=== PATIENT | female | born 1985 | race Caucasian/White ===

== ENCOUNTER 2018-02-09 16:00 | Emergency (ER) | payer BC ==
[2018-02-09 16:22] VITALS: BP 128/84
--- NOTE | 2018-02-09 16:26 | UC ---
Abdominal Pain Female HPI - HPI Summary HPI Summary: STARTED W/ A FEW DAYS OF RLQ PAIN AND R GROIN PAIN. she is active in the gym and feels perhaps she pulled a muscle. denies n/v, diarrhea, fever. has not tried anything. - History of Current Complaint Stated Complaint: ABDOMINAL PAIN Time Seen by Provider: 02/09/18 16:14 Hx Obtained From: Patient ?: No Radiates: Yes Radiates to: RLQ Character: Aching Aggravating Factor(s): Movement Alleviating Factor(s): Position Associated Signs and Symptoms: Positive: Negative Allergies/Adverse Reactions: Allergies Allergy/AdvReac Type Severity Reaction Status Date / Time Penicillins Allergy Severe Hives Verified 02/09/18 16:22 Home Medications: Home Medications Amphetamine MIXED SALT TAB* [Adderall TAB*] 10 mg PO BID 02/09/18 [History Confirmed 02/09/18] PMH/Surg Hx/FS Hx/Imm Hx Previously Healthy: Yes Review of Systems All Other Systems Reviewed And Are Negative: Yes Constitutional: Positive: Negative Respiratory: Positive: Negative Cardiovascular: Positive: Negative Gastrointestinal: Positive: Abdominal Pain - RLQ/R GROIN Genitourinary: Positive: Negative. Negative: Dysuria, Vaginal/Penile Discharge Physical Exam Triage Information Reviewed: Yes Appearance: Well-Appearing, Other: - sitting uncomfortably Vital Signs Reviewed: Yes Respiratory Exam: Normal Cardiovascular Exam: Normal Abdomen Description: Positive: Soft, Guarding - RLQ, tenderness at R groin ? hernia, Hernia @ - ? R groin. Negative: CVA Tenderness (R), CVA Tenderness (L) , Distended Neurological: Positive: Alert Skin Exam: Other - C section scar noted, nontender Abd Pain Female Course/Dx - Differential Dx/Diagnosis Differential Diagnosis: Appendicitis, Diverticulitis, Ovarian Cyst, Renal Colic , Urinary Tract Infection Provider Diagnoses: RLQ TENDERNESS W/? hernia at R groin. cannot r/o appendicitis Discharge - Sign-Out/Discharge Documenting (check all that apply): Patient Departure All imaging exams completed and their final reports reviewed: No Studies - Discharge Plan Condition: Good Disposition: HOME-RECOMMEND TO ED Patient Education Materials: Inguinal Hernia (ED), Acute Abdominal Pain (ED) Referrals: Froilan Light DO [Primary Care Provider] - Additional Instructions: Because I cannot rule out appendicitis it is my recommendation that you go to ER and get CT. On exam I also thought I felt a hernia but also unclear. Offer ambulance. - Billing Disposition and Condition Condition: GOOD Disposition: Home-Recommend to ED
== END 2018-02-09 17:10 | disposition home health service (06) ==
LOC: UCEAST 16:00
DX: R10.31 Right lower quadrant pain (principal)
CPT/HCPCS: 81003; 84702; 99202; G0463

== ENCOUNTER 2018-02-09 17:52 | Emergency (ER) | payer BC ==
[2018-02-09] MEDS ORDERED: NS 0.9% 1000 ML* 1,000 ML IV ONE (18:08)
[2018-02-09] MEDS ORDERED: Ketorolac INJ* 30 MG/ML 1 ML VIAL IV PUSH ONE (18:08)
--- NOTE | 2018-02-09 18:12 | ED ---
GI/ HPI - HPI Summary HPI Summary: 32 year old female presents with right lower quadrant pain for the past day. She states that she is having pain over the past couple weeks. She said that today the pain has been getting worse for the past 24 hours. She denies any urinary symptoms. no nausea or vomiting. No decreased appetite. no abnormal vaginal discharge. No diarrhea constipation. Has history of ovarian cyst that required surgery. Has also had a section. Has no medical conditions. Hasn't tried anything for pain. no medical conditions. - History of Current Complaint Chief Complaint: EDAbdPain Time Seen by Provider: 02/09/18 18:00 Stated Complaint: ABD PAIN/SWELLING Hx Last Menstrual Period: 01/25/18 Pain Intensity: 5 - Allergy/Home Medications Allergies/Adverse Reactions: Allergies Allergy/AdvReac Type Severity Reaction Status Date / Time Penicillins Allergy Severe Hives Verified 02/09/18 16:22 PMH/Surg Hx/FS Hx/Imm Hx Endocrine/Hematology History: Denies: Hx Diabetes, Hx Thyroid Disease Cardiovascular History: Denies: Hx Hypertension Respiratory History: Denies: Hx Asthma, Hx Chronic Obstructive Pulmonary Disease (COPD) GI History: Denies: Hx Ulcer - Surgical History Surgery Procedure, Year, and Place: Infectious Disease History: No Infectious Disease History: Denies: Hx Hepatitis, Hx Human Immunodeficiency Virus (HIV), Traveled Outside the [place] in Last 30 Days - Family History Known Family History: Negative: Diabetes - Social History Alcohol Use: Occasionally Substance Use Type: Reports: None Smoking Status (MU): Light Every Day Tobacco Smoker Review of Systems Negative: Fever Negative: Chest Pain Negative: Shortness Of Breath Positive: Abdominal Pain. Negative: Vomiting, Diarrhea, Nausea Negative: dysuria All Other Systems Reviewed And Are Negative: Yes Physical Exam Triage Information Reviewed: Yes Vital Signs On Initial Exam: Initial Vitals Temp Pulse Resp BP Pulse Ox 98.0 F 82 18 124/81 100 02/09/18 17:54 02/09/18 17:54 02/09/18 17:54 02/09/18 17:54 02/09/18 17:54 Vital Signs Reviewed: Yes Appearance: Positive: Well-Appearing Skin: Positive: Warm, Dry Head/Face: Positive: Normal Head/Face Inspection Eyes: Positive: Normal, Conjunctiva Clear ENT: Positive: Pharynx normal Respiratory/Lung Sounds: Positive: Clear to Auscultation, Breath Sounds Present Cardiovascular: Positive: Normal, RRR Abdomen Description: Positive: Soft, Other: - tenderness RLQ, neg rovsings Bowel Sounds: Positive: Present Musculoskeletal: Positive: Normal Neurological: Positive: Normal Psychiatric: Positive: Normal Diagnostics - Vital Signs Vital Signs Temp Pulse Resp BP Pulse Ox 02/09/18 17:54 98.0 F 82 18 124/81 100 - Laboratory Result Diagrams: 02/09/18 18:20 02/09/18 18:20 Lab Statement: Any lab studies that have been ordered have been reviewed, and results considered in the medical decision making process. - CT abd CT Interpretation Completed By: Radiologist Summary of CT Findings: IMPRESSION: 1. No acute findings. No evidence of appendicitis. 2. Large amount of stool in the colon. Correlate clinically for constipation. - Ultrasound No standard instances Ultrasound Interpretation Completed By: Radiologist Summary of Ultrasound Findings: IMPRESSION: 1. No acute findings. 2. Small left ovarian cyst. A complex hypoechoic area is also noted on the left. ovary, possibly an involuting or hemorrhagic cyst. Consider followup ultrasound. to reassess. 3. Prominent endometrial stripe. Correlate with patient's cycle. Re-Evaluation - Re-Evaluation First Eval Re-Evaluation Time: 19:25 Change: Improved Comment: feeling better after toradol GIGU Course/Dx - Course Course Of Treatment: 32 year old female presents with right lower quadrant pain for the past day. She states that she is having pain over the past couple weeks. She said that today the pain has been getting worse for the past 24 hours. She denies any urinary symptoms. no nausea or vomiting. No decreased appetite. no abnormal vaginal discharge. No diarrhea constipation. Has history of ovarian cyst that required surgery. Has also had a section. Has no medical conditions. Hasn't tried anything for pain. on exam tenderness RLQ. neg rovsings. wbc normal. crp normal. transvaginal u/s shows left ovarian cyst. urine no infection. CT normal just stool. discussed results with patient and patient states does not feel constipated. discussed should take tyenlol or ibuprofen for pain and follow up with primary. could be hernia causing pain although no hernia felt at this time. patient understand and agrees with plan. - Diagnoses Differential Diagnoses - Female: Appendicitis, Ovarian Cyst, Urinary Tract Infection Provider Diagnoses: Abdominal pain Discharge - Sign-Out/Discharge Documenting (check all that apply): Patient Departure - Discharge Plan Condition: Good Disposition: HOME Patient Education Materials: Acute Abdominal Pain (ED) Referrals: Froilan Light DO [Primary Care Provider] - Additional Instructions: Your pain is not caused by any surgical emergency Drink fluids as tolerated Take ibuprofen or Tylenol for pain as needed every 6 hours Follow up with primary within 5 days Return to ED if develop any new or worsening symptoms - Billing Disposition and Condition Condition: GOOD Disposition: Home
[2018-02-09 18:39] LABS: ABS Basophils 0 10^3/ul (0-0.2); ABS Eosinophils 0.2 10^3/ul (0-0.6); ABS Lymphocytes 2.6 10^3/ul (1.0-4.8); ABS Monocytes 0.4 10^3/ul (0-0.8); ABS Neutrophils 3.8 10^3/ul (1.5-7.7); ABS Nucleated RBC 0 10^3/ul; Hematocrit 40 % (35-47); Hemoglobin 13.4 g/dl (12.0-16.0); Lymphocyte % 37.3 % (25-47); Mean Corpuscular HGB Conc 34 g/dl (31-36); Mean Corpuscular Hemoglobin 32 pg (27-31); Mean Corpuscular Volume 95 fL (80-97); Mean Platelet Volume 6.8 fL (7.4-10.4); Nucleated Red Blood Cells % 0.1; Platelet Count 321 10^3/ul (150-450); Red Blood Count 4.21 10^6/ul (4.00-5.40); Red Cell Distribution Width 14 % (10.5-15); White Blood Count 7.1 10^3/ul (3.5-10.8)
[2018-02-09] MEDS ORDERED: Iohexol 300* (CONTRAST) 10 ML SDV IV ONE (19:12)
[2018-02-09 20:49] LABS: Urine Appearance Clear; Urine Blood Negative (Negative); Urine Color Colorless; Urine Ketones Negative (Negative); Urine Protein Negative (Negative); Urine Specific Gravity 1.004 (1.010-1.030); Urine Urobilinogen Negative (Negative)
[2018-02-09 21:25] VITALS: BP 121/76
== END 2018-02-09 21:24 | disposition home or self-care (01) ==
LOC: ED 17:52
DX: R10.31 Right lower quadrant pain (principal); F17.210 Nicotine dependence, cigarettes, uncomplicated
CPT/HCPCS: 36415; 74177; 76830; 80053; 81003; 83690; 84702; 85025; 86140; 96361; 96374; 99283; Q9967

== ENCOUNTER 2021-02-12 06:10 | Inpatient (IN) ==
[2021-02-12] MEDS ORDERED: Lactated Ringers 1000 ml BAG 1,000 ML IV SCH ×3 (06:48→10:00)
[2021-02-12 06:57] LABS: Hematocrit 34 % (35-47); Mean Corpuscular HGB Conc 35 g/dL (31-36); Mean Corpuscular Hemoglobin 33 pg (27-31); Mean Corpuscular Volume 94 fL (80-97); Mean Platelet Volume 7.4 fL (7.4-10.4); Platelet Count 243 10^3/uL (150-450); Red Blood Count 3.61 10^6 /uL (3.70-4.87); Red Cell Distribution Width 14 % (10-15); White Blood Count 10.3 10^3/uL (3.5-10.8)
[2021-02-12] MEDS ORDERED: Buffered Lidocaine 1% SYRIN 1 ml INTRADERM ONE (07:04)
[2021-02-12] MEDS ORDERED: Sodium Citrate/Citric Acid LIQ 15 ML UDC PO ONE (07:04)
[2021-02-12 07:18] LABS: ABS Eosinophils 0.2 10^3/ul (0-0.6); ABS Lymphocytes 2.1 10^3/ul (1.0-4.8); ABS Monocytes 0.7 10^3/ul (0-0.8); ABS Neutrophils 7.2 10^3/ul (1.5-7.7); Eosinophil % 2.1 %; Lymphocyte % 20.2 %
[2021-02-12 07:23] LABS: Urine Benzodiazepine Screen None Detected (None Detect); Urine Cannabinoids Screen None Detected (None Detect); Urine Opiates Screen None Detected (None Detect)
[2021-02-12] MEDS ORDERED: Ondansetron 4 mg VIAL 2 MG/ML 2 ml VIAL ONE (07:30)
[2021-02-12] MEDS ORDERED: Phenylephrine 40 mcg/mL 10mL (400mcg) SYRINGE ONE (07:31)
[2021-02-12] MEDS ORDERED: Bupivacaine-MPF SPINAL 7.5 MG/ML - 2ML AMP ONE (07:31)
[2021-02-12] MEDS ORDERED: fentaNYL 100 mcg/2 ml 50 MCG/ML VIAL ONE (07:32)
[2021-02-12] MEDS ORDERED: Acetaminophen IV 1 GM/100ML 100 ML IV ONE (07:32)
[2021-02-12] MEDS ORDERED: Morphine PF AMP (0.5MG/ML) 5 MG/10 ML AMP ONE (07:33)
[2021-02-12] MEDS ORDERED: ceFOXitin 2 GM IVPREMIX 2 GM/50 ML BAG ONE (07:34)
[2021-02-12] MEDS ORDERED: Oxytocin 10 UNITS/ML 1 ML VIAL ONE (07:37)
[2021-02-12] MEDS ORDERED: ceFOXitin 2 GM PREMIX 50 ML IVPB ONE (08:00)
[2021-02-12] MEDS ORDERED: DiMENhydriNATE IV 50 mg/ml 1 ml VIAL IV PUSH PRN ×2 (09:05→09:07)
[2021-02-12] MEDS ORDERED: diPHENhydraMINE IV 50 MG/ML 1 ml VIAL (BENADRYL) IV PRN (09:05)
[2021-02-12] MEDS ORDERED: Ondansetron 4 mg VIAL 2 MG/ML 2 ml VIAL IV PRN (09:05)
[2021-02-12] MEDS ORDERED: oxyCODONE/Acetamin 5/325 mg TAB PO PRN (09:05)
[2021-02-12] MEDS ORDERED: Naloxone 0.4 mg VIAL 0.4 mg/ml 1 ml VIAL IV PRN ×2 (09:05→09:07)
[2021-02-12] MEDS ORDERED: Prochlorperazine 5 mg/ml 2 ml VIAL (10 mg) IV PRN (09:05)
[2021-02-12] MEDS ORDERED: HYDROmorphone 1 MG/1 ML SYRINGE IV PRN (09:07)
[2021-02-12] MEDS ORDERED: fentaNYL 100 mcg/2 ml 50 MCG/ML VIAL IV PRN (09:07)
[2021-02-12] MEDS ORDERED: Witch Hazel PAD JAR TOPICAL PRN (09:57)
[2021-02-12] MEDS ORDERED: Dibucaine 1% OINT 28.35 GM TUBE PR PRN (09:57)
[2021-02-12] MEDS ORDERED: Glycerin ADULT 2.4 gm SUPP PR PRN (09:57)
[2021-02-12] MEDS ORDERED: Varicella Virus Vaccine Live 0.5 ML VIAL SUBCUT ONE (11:00)
[2021-02-12 11:47] LABS: Urine Appearance Clear; Urine Bilirubin Negative (Negative); Urine Blood Negative (Negative); Urine Color Yellow; Urine Glucose Negative (Negative); Urine Ketones Negative (Negative); Urine Nitrite Negative (Negative); Urine Protein Negative (Negative); Urine Specific Gravity 1.017 (1.002-1.030); Urine Urobilinogen Negative (Negative)
[2021-02-13 08:34] LABS: ABS Basophils 0.1 10^3/ul (0-0.2); ABS Eosinophils 0.1 10^3/ul (0-0.6); ABS Lymphocytes 1.7 10^3/ul (1.0-4.8); ABS Monocytes 0.9 10^3/ul (0-0.8); ABS Neutrophils 7.7 10^3/ul (1.5-7.7); Eosinophil % 1.3 %; Hematocrit 31 % (35-47); Hemoglobin 10.6 g/dL (12.0-16.0); Lymphocyte % 16.4 %; Mean Corpuscular HGB Conc 34 g/dL (31-36); Mean Corpuscular Hemoglobin 32 pg (27-31); Mean Corpuscular Volume 95 fL (80-97); Mean Platelet Volume 7.1 fL (7.4-10.4); Platelet Count 192 10^3/uL (150-450); Red Cell Distribution Width 14 % (10-15); White Blood Count 10.6 10^3/uL (3.5-10.8)
[2021-02-14 07:47] VITALS: BP 108/68
[2021-02-15] MEDS ORDERED: Scopolamine PATCH Remove NOTE PATCH OFF SCH (17:00)
== END 2021-02-14 15:50 | disposition home or self-care (01) | DRG 540 ==
LOC: MCHOB 06:10
PROVIDERS: ADMIT Obstetrics & Gynecology; ATTEND Obstetrics & Gynecology